=== PATIENT | female | born 1960 | race Caucasian/White ===

== ENCOUNTER 2017-04-18 10:43 | Emergency (ER) | payer BC ==
--- NOTE | 2017-04-18 11:35 | UC ---
Respiratory Complaint HPI - HPI Summary HPI Summary: ST and cough starting about a week ago, increasing nasal congestion since then. Cough is dry, nose is congested without dripping. Denies wheezing or difficulty breathing. SPent last weekend with friends, one of them was coughing. Thinks she got it there. No known fevers, but having chills and night sweats. - History of Current Complaint Chief Complaint: UCRespiratory Stated Complaint: COUGH Time Seen by Provider: 04/18/17 10:59 Hx Obtained From: Patient ?: No Onset/Duration: Gradual Onset, Lasting Days Timing: Constant Severity Initially: Moderate Severity Currently: Moderate Character: Cough: Nonproductive Aggravating Factors: Recumbent Position Alleviating Factors: Upright Position Associated Signs And Symptoms: Positive: Chills, URI, Nasal Congestion - Allergies/Home Medications Allergies/Adverse Reactions: Allergies Allergy/AdvReac Type Severity Reaction Status Date / Time No Known Allergies Allergy Verified 04/18/17 10:47 Home Medications: Home Medications [id number] ER TAB [Mucinex*] 04/18/17 [History] PMH/Surg Hx/FS Hx/Imm Hx Previously Healthy: Yes Other Respiratory History: "walking pneumonia in college" - Surgical History Surgical History: Yes Surgery Procedure, Year, and Place: Hysterectomy - Family History Known Family History: Negative: Diabetes - Social History Occupation: Employed Full-time Lives: With Family Substance Use Type: None Review of Systems Constitutional: Chills, Fatigue Skin: Negative Eyes: Negative ENT: Sore Throat Respiratory: Cough Cardiovascular: Negative Gastrointestinal: Negative Genitourinary: Negative Motor: Negative Neurovascular: Negative Musculoskeletal: Negative Neurological: Negative Psychological: Negative All Other Systems Reviewed And Are Negative: Yes Physical Exam Triage Information Reviewed: Yes Appearance: Well-Nourished, Pain Distress - with cough only Vital Signs: Initial Vital Signs Temp 97.9 F 04/18/17 10:49 Pulse 90 04/18/17 10:49 Resp 16 04/18/17 10:49 BP 124/85 04/18/17 10:49 Pulse Ox 98 04/18/17 10:49 Vital Signs Reviewed: Yes Eye Exam: Normal Eyes: Positive: Conjunctiva Clear ENT: Positive: Hearing grossly normal, Pharynx normal, Nasal congestion, TMs normal. Negative: Nasal drainage Dental Exam: Normal Neck exam: Normal Neck: Positive: Supple, Nontender, No Lymphadenopathy Respiratory Exam: Other - dry cough Respiratory: Positive: Chest non-tender, Lungs clear, Normal breath sounds, No respiratory distress, No accessory muscle use Cardiovascular Exam: Normal Cardiovascular: Positive: RRR, No Murmur Musculoskeletal Exam: Normal Neurological Exam: Normal Neurological: Positive: Alert Psychological Exam: Normal Skin Exam: Normal UC Diagnostic Evaluation - Laboratory O2 Sat by Pulse Oximetry: 98 Respiratory Course/Dx - Differential Dx/Diagnosis Provider Diagnoses: acute bronchitis Discharge - Discharge Plan Condition: Stable Disposition: HOME Prescriptions: Acetaminop/Codeine 30 MG TAB* [Tylenol/Codeine 30 MG TAB*] 1 - 2 tab PO BEDTIME PRN #15 tab MDD 2 PRN Reason: Cough Benzonatate CAP* [Tessalon CAP*] 100 mg PO TID PRN #30 cap PRN Reason: Cough Patient Education Materials: Acute Bronchitis (ED) Referrals: Betty Vargas MD [Primary Care Provider] - 1 Week Additional Instructions: We used to think antibiotics were necessary to treat bronchitis, but studies have shown that respiratory viruses cause the disease in the vast majority of cases. Like head colds, most cases of bronchitis get better without antibiotics. We may prescribe antibiotics if we believe bacteria are damaging your airways, or if there's high risk the bronchitis will worsen into pneumonia (such as for individuals with emphysema or other lung disease). Increase your fluid intake. A cool mist humidifier may make your lungs more comfortable. An expectorant (cough medicine that loosens phlegm) can help. Recovery from bronchitis can be somewhat slow, but you should not have any significant worsening or new fevers. As long as you can breathe easily and you continue to have steady improvement, it is not important how many days it takes you to get better. Call or return if you develop increasing fever, shortness of breath, chest pain , bloody sputum, or otherwise worsen. If you have not improved at all after several days, contact your primary care physician or return here.
--- NOTE | 2017-04-18 12:37 | RAD ---
Indication: Cough and chills. 2 views of the chest including dual energy PA views demonstrate no mediastinal shift. Heart is of normal size and configuration. Lung marcos demonstrate no pleural fluid, pneumonia or pneumothorax. IMPRESSION: No active cardiopulmonary disease is noted.
== END 2017-04-18 12:13 | disposition home or self-care (01) ==
LOC: UCEAST 10:43
DX: J20.9 Acute bronchitis, unspecified (principal)
CPT/HCPCS: 71020; 99202; G0463

== ENCOUNTER 2017-09-07 14:59 | Emergency (ER) | payer BC ==
--- NOTE | 2017-09-07 16:09 | UC ---
Lower Extremity/Ankle HPI - HPI Summary HPI Summary: 57 y/o female presents to the urgent care c/o Rt ankle pain s/p injury about 1 week ago. Pt reports she was stepping off her deck when she rolled and twisted her Rt ankle. She has been applying ice and took ibuprofen 400mg PO for 2 days. She has been able to ambulate, but for the past 2 days ankle is more swollen and in the morning she is feeling a mild tingling over the back of her foot. Pain is 6/10 when she walks. Pt denies fever, calf pain, SOB, chest pain , N/V/D. - History of Current Complaint Chief Complaint: UCLowerExtremity Stated Complaint: RIGHT ANKLE INJURY Time Seen by Provider: 09/07/17 16:06 Hx Obtained From: Patient Hx Last Menstrual Period: menopausal ?: No Onset/Duration: Sudden Onset, Lasting Weeks - 1 week, Still Present Severity Initially: Moderate Pain Intensity: 6 Pain Scale Used: 0-10 Numeric Aggravating Factor(s): Ambulation Alleviating Factor(s): Rest, Elevation, OTC Meds Able to Bear Weight: Yes - Risk Factors Gout Risk Factors: Negative DVT Risk Factors: Negative Septic Arthritis Risk Factor: Negative - Allergies/Home Medications Allergies/Adverse Reactions: Allergies Allergy/AdvReac Type Severity Reaction Status Date / Time No Known Allergies Allergy Verified 09/07/17 15:19 PMH/Surg Hx/FS Hx/Imm Hx Previously Healthy: Yes - Pt denies PMHX - Surgical History Surgical History: Yes Surgery Procedure, Year, and Place: Hysterectomy - Family History Known Family History: Positive: None - Pt denies FMHX Negative: Diabetes - Social History Occupation: Employed Full-time Lives: With Family Alcohol Use: Occasionally Substance Use Type: None Smoking Status (MU): Never Smoked Tobacco Review of Systems Constitutional: Negative Skin: Negative Eyes: Negative ENT: Negative Respiratory: Negative Cardiovascular: Negative Gastrointestinal: Negative Genitourinary: Negative Motor: Negative Neurovascular: Negative Musculoskeletal: Other: - RT ankle pain s/p injury Neurological: Negative Psychological: Negative Is Patient Immunocompromised?: No All Other Systems Reviewed And Are Negative: Yes Physical Exam Triage Information Reviewed: Yes Vital Signs: Initial Vital Signs Temp 99.1 F 09/07/17 15:13 Pulse 78 09/07/17 15:13 Resp 16 09/07/17 15:13 BP 129/87 09/07/17 15:13 Pulse Ox 98 09/07/17 15:13 - Additional Comments Vital Signs Reviewed: Yes General: well developed, well nourished female sitting comfortably on the examining table w/o any apparent distress Eyes: Positive: Conjunctiva Clear - PERRLA, EOMI, ENT: Positive: Normal ENT inspection, Hearing grossly normal, Pharynx normal, TMs normal Neck: Positive: Supple, Nontender, No Lymphadenopathy Respiratory: Positive: Chest non-tender, Lungs clear, Normal breath sounds, No respiratory distress Cardiovascular: Positive: RRR, No Murmur, Pulses Normal, Brisk Capillary Refill Abdomen Description: Positive: Nontender, No Organomegaly, Soft. Negative: CVA Tenderness (R), CVA Tenderness (L) Bowel Sounds: Positive: Present Musculoskeletal: - Ankle: Pt is able to bear weight and ambulate w/ limping. The R ankle is without obvious asymmetry or deformity when compared to the L ankle. Decrease ROM due to pain. Moderate swelling at the medial and lateral malleolus, with tenderness to palpation. No ecchymosis or bruising observed. Talar tilt test is negative for ligament laxity to valgus or varus stress. Negative anterior drawer. Positive sensation over the Rt foot and Rt ankle, positive pulses, capillary refill intact Neurological Exam: Normal Psychological Exam: Normal Lower Extremity Course/Dx - Course Course Of Treatment: 57 y/o female presents to the urgent care c/o Rt ankle pain s/p injury about 1 week ago. Pt reports she was stepping off her deck when she rolled and twisted her Rt ankle. She has been applying ice and took ibuprofen 400mg PO for 2 days. She has been able to ambulate, but for the past 2 days ankle is more swollen and in the morning she is feeling a mild tingling over the back of her foot. Pain is 6/10 when she walks. Pt denies fever, calf pain, SOB, chest pain, N/V/D.HX obtained. Rt ankle X-ray ordered, Impression: Noacute fracture observed, mild lateral soft tissue swelling and a small heel spur observed. Pt most likely with a RT ankle Sprain. Pt immobilized with dann bandage and gel ankle splint to , given post up shooe. Pt decline crutches since she has them at home. Rx Naproxen PO to decrease swelling and pain. Pt advised RICE, and f/u with PCP on orthopedic in 1 week if not improvement of symptoms for further treatment. Parents and Pt understood and agreed and left the clinic ambulating. - Differential Dx/Diagnosis Differential Diagnosis/HQI/PQRI: Dislocation, Fracture (Closed), Sprain, Strain , Tendonitis Provider Diagnoses: 1- RT ankle pain s/p injury Discharge - Discharge Plan Condition: Stable Disposition: HOME Prescriptions: Naproxen TAB* [Naprosyn 250 mg TAB*] 500 mg PO Q8H PRN #30 tab PRN Reason: Pain Patient Education Materials: Ankle Sprain (ED), Heel Spur (ED) Referrals: Jeet Lynch MD [Medical Doctor] - 1 Week Betty Vargas MD [Primary Care Provider] - 1 Week Additional Instructions: 1-Please take medications as directed to alleviate pain and swelling. 2-Please apply ice, keep your ankle immobilized with the splint. Avoid weight bearing using the crutches you have at home. 3- Please f/u with Orthopedic Dr Lynch or your PCP in 1 week is not improvement of symptoms for further evaluation and treatment.
--- NOTE | 2017-09-07 17:12 | RAD ---
INDICATION: Right ankle injury COMPARISON: None TECHNIQUE: AP, lateral, and oblique views were obtained. FINDINGS: There is no acute bony change. There are small heel spurs. There is minor first spurring of the dorsal aspect of the ankle and midfoot. There is mild lateral soft tissue swelling. IMPRESSION: NO ACUTE FRACTURE. MILD LATERAL SOFT TISSUE SWELLING.
[2017-09-07 17:34] VITALS: BP 118/76
== END 2017-09-07 17:34 | disposition home or self-care (01) ==
LOC: UCCORT 14:59
DX: M25.571 Pain in right ankle and joints of right foot (principal); X50.1XXA Overexertion from prolonged static or awkward postures, initial encounter; Y92.89 Other specified places as the place of occurrence of the external cause
CPT/HCPCS: 99213; G0463

== ENCOUNTER 2019-03-10 15:55 | Emergency (ER) | payer BC ==
[2019-03-10 16:10] VITALS: BP 127/89
--- NOTE | 2019-03-10 16:19 | UC ---
Throat Pain/Nasal Alfredito HPI - HPI Summary HPI Summary: Since last pt has been congested, headache, cough. Pt feels it could be a sinus infection. Pt recently dx with breast cancer and having surgery in 2 weeks - History of Current Complaint Chief Complaint: UCGeneralIllness Stated Complaint: SINUS COMPLAINT Time Seen by Provider: 03/10/19 16:16 Hx Obtained From: Patient Hx Last Menstrual Period: menopausal ?: No Onset/Duration: Sudden Onset, Lasting Days Severity: Moderate Pain Intensity: 7 - Allergies/Home Medications Allergies/Adverse Reactions: Allergies Allergy/AdvReac Type Severity Reaction Status Date / Time No Known Allergies Allergy Verified 09/07/17 15:19 PMH/Surg Hx/FS Hx/Imm Hx - Surgical History Surgical History: Yes Surgery Procedure, Year, and Place: Hysterectomy - Family History Known Family History: Positive: None - Pt denies FMHX Negative: Diabetes - Social History Alcohol Use: Occasionally Substance Use Type: None Smoking Status (MU): Never Smoked Tobacco Review of Systems All Other Systems Reviewed And Are Negative: Yes ENT: Positive: Sore Throat, Nasal Discharge, Sinus Congestion Respiratory: Positive: Cough Neurological: Positive: Headache Is Patient Immunocompromised?: No Physical Exam Triage Information Reviewed: Yes Appearance: Well-Nourished, Ill-Appearing, Pain Distress Vital Signs: Initial Vital Signs Temp 98.4 F 03/10/19 16:06 Pulse 88 03/10/19 16:06 Resp 18 03/10/19 16:06 BP 127/89 03/10/19 16:06 Pulse Ox 98 03/10/19 16:06 Vital Signs Reviewed: Yes Eye Exam: Normal ENT: Positive: Pharyngeal erythema - wiht PND, Nasal congestion, Nasal drainage , TM bulging, Sinus tenderness Dental Exam: Normal Neck exam: Normal Respiratory Exam: Normal Respiratory: Positive: Chest non-tender, Lungs clear, Normal breath sounds Cardiovascular Exam: Normal Cardiovascular: Positive: RRR, No Murmur, Pulses Normal Abdominal Exam: Normal Musculoskeletal Exam: Normal Musculoskeletal: Positive: Strength Intact, ROM Intact, No Edema Neurological Exam: Normal Psychological Exam: Normal Skin Exam: Normal Throat Pain/Nasal Course/Dx - Course Course Of Treatment: hx obtained, exam performed, meds reviewed, treated for sinusitis - Differential Dx/Diagnosis Differential Diagnosis/HQI/PQRI: Otitis Media, Pharyngitis, Sinusitis, URI Provider Diagnosis: Sinusitis Discharge - Sign-Out/Discharge Documenting (check all that apply): Patient Departure All imaging exams completed and their final reports reviewed: No Studies - Discharge Plan Condition: Stable Disposition: HOME Prescriptions: Amoxicillin PO (*) [Amoxicillin 875 MG (*)] 875 mg PO BID #20 tab Patient Education Materials: Sinusitis (ED) Referrals: Betty Vargas MD [Primary Care Provider] - Additional Instructions: 1. take the medication as prescribed., 2. Increase fluid intake and use warm compresses over the sinuses. 3. Ibuprofen for pain and fever 4. start a daily antihistamine such ans zyrtec 5. Nasal wash is also helpful - Billing Disposition and Condition Condition: STABLE Disposition: Home
== END 2019-03-10 16:38 | disposition home or self-care (01) ==
LOC: UCCORT 15:55
DX: J32.9 Chronic sinusitis, unspecified (principal)
CPT/HCPCS: 99212; G0463